=== PATIENT | female | born 1985 | race African-American/Black ===

== ENCOUNTER 2024-12-20 07:43 | Emergency (ER) | payer MEDICAID, OTHER ==
[~2024-12-20] VITALS: Ht 170.2 cm; Wt 70.0 kg
[2024-12-20 08:06] VITALS: O2SAT 100
[2024-12-20] MEDS: PREDNISONE 20MG TABLET PO ONE (09:28)
[2024-12-20] MEDS: IPRATROPIUM/ALBUTEROL 0.5-3(2.5)MG/3ML NEB HHN ONE (09:55)
[2024-12-20 09:59] VITALS: PULSE 119; RESP 22
[2024-12-20] MEDS ORDERED: ALBU18HF2 IH (13:30)
[2024-12-20] MEDS ORDERED: P20 MT (13:30)
[2024-12-20] MEDS ORDERED: ALBU2.5V13 NEB (13:30)
[2024-12-20] MEDS ORDERED: BENZ100C86 MT (13:30)
[2024-12-20 13:51] VITALS: BP 113/70; PULSE 87; RESP 18; TEMP 36.8; O2SAT 98
== END 2024-12-20 13:53 | disposition home or self-care (01) ==
LOC: ER 07:43
DX: J45.901 Unspecified asthma with (acute) exacerbation (principal); Z20.822 Contact with and (suspected) exposure to COVID-19
CPT/HCPCS: 81025; 87804 ×2; 71046; 94640; 93005; 99285; 87426; J7512; Z7610 ×3; 94070